=== PATIENT | female | born 1950 | race Caucasian/White ===

== ENCOUNTER 2024-02-14 11:00 | Outpatient (CLI) | payer MEDICARE, BC ==
[~2024-02-14 11:00] MED LIST: ASPI-1265 PO; ATEN-169 PO; LEVE750T66 PO; LISI-222 PO; NORCO10T PO; PITA2TAB2 PO; SERT-153 PO; ZOF4T PO
[2024-02-14 11:44] LABS: ALBUMIN 3.5 G/DL (3.4-5.0); ANION GAP 8 (8-16); BLOOD UREA NITROGEN 16 MG/DL (7-18); BUN/CREATININE RATIO 17.4 (10.0-20.0); CALCIUM 9.3 MG/DL (8.5-10.1); CHLORIDE 103 MMOL/L (99-107); CREATININE 0.92 MG/DL (0.40-0.90); GLUCOSE 93 MG/DL (70-104); POTASSIUM 4.3 MMOL/L (3.5-5.1); SODIUM 134 MMOL/L (135-145); TOTAL CARBON DIOXIDE 23.5 MMOL/L (24-32); eGFR 60 ML/MIN
[2024-02-14] MEDS ORDERED: iohexol 350MG/ML 100ml bottle IV ONE (11:48)
== END 2024-02-14 15:00 | disposition home or self-care (01) ==
LOC: RAD 11:00
PROVIDERS: ATTEND Internal Medicine Interventional Cardiology
DX: I65.23 Occlusion and stenosis of bilateral carotid arteries (principal); I63.411 Cerebral infarction due to embolism of right middle cerebral artery; I11.9 Hypertensive heart disease without heart failure
CPT/HCPCS: 36415; 70498; 80048; Q9967